=== PATIENT | female | born 1960 | race Caucasian/White ===

== ENCOUNTER 2016-04-11 08:30 | Emergency (ER) | payer OTHER ==
--- NOTE | 2016-04-11 09:13 | EDPHY ---
H & P Stated Complaint: l hip pain/snowshoing last week Time Seen by Provider: 04/11/16 08:47 - Personal History Current Tetanus/Diphtheria Vaccine: Yes - Medical/Surgical History Hx Asthma: No Hx Chronic Respiratory Disease: No Hx Diabetes: No Hx Cardiac Disease: No Hx Renal Disease: No Hx Cirrhosis: No Hx Alcoholism: No Hx HIV/AIDS: No Hx Splenectomy or Spleen Trauma: No Other PMH: breast cancer - Social History Smoking Status: Never smoked Constitutional: Initial Vital Signs Temperature (C) 36.4 C 04/11/16 08:36 Heart Rate 68 04/11/16 08:36 Respiratory Rate 16 04/11/16 08:36 Blood Pressure 136/71 H 04/11/16 08:36 O2 Sat (%) 93 04/11/16 08:36 O2 Delivery Mode Room Air Allergies/Adverse Reactions: No Known Allergies Allergy (Unverified 04/11/16 08:33) Home Medications: Medication Instructions Recorded Anastrozole 04/11/16 LYRICA 04/11/16 Woodward 5/325 (*) 04/11/16 VENLAFAXINE HCL 04/11/16 Vitamins And Supplements 04/11/16 Medical Decision Making ED Course/Re-evaluation: CHIEF COMPLAINT: Left hip pain HISTORY OF PRESENT ILLNESS: 56-year-old female who approximately 1 year ago was diagnosed with breast cancer. She has just recently finished her radiation treatment is in the process of reconstructive breast surgery. Intermittently over the last year she has had some mild pain in the anterior left hip and groin area. Over the last few days after snow shoveling event she has had excruciating pain in the outside of the left hip with some partial radiation down the lateral left thigh. She can barely bear weight. It woke grade 3 in the morning she could barely get down stairs. She took a [place]ward at 6 this morning and was able sit in a chair for a while but still did not help much she came here for further evaluation. She denies any fevers or chills. She denies any traumatic injury or specific event REVIEW OF SYSTEMS: A 10 point review of systems was performed and is negative with the exception of the elements mentioned in the history of present illness. PHYSICAL EXAM: HR, BP, O2 Sat, RR. Temp noted General Appearance: Alert, well hydrated, appropriate, and non-toxic appearing. Head: Atraumatic without scalp tenderness or obvious injury Eyes: Pupils equal, round, reactive to light and accommodation, EOMI, no trauma , no injection. Ears: Clear bilaterally, no perforation, normal landmarks Nose: Atraumatic, no rhinorrhea, clear. Throat: There is no erythema or exudates, no lesions, normal tonsils, mucus membranes moist. Neck: Supple, 2+ carotid upstroke, nontender, no lymphadenopathy. Respiratory: No retractions, no distress, no wheezes, and no accessory muscle use. Lungs are clear to auscultation bilaterally. Cardiovascular: Regular rate and rhythm, no murmurs, rubs, or gallops. Bilateral carotid, radial, dorsalis pedis, and posterior tibial pulses intact. Good capillary refill all extremities. Gastrointestinal: Abdomen is soft, nontender, non-distended, no masses, no rebound, no guarding, no peritoneal signs. Musculoskeletal: Significant pain in the left hip over the greater trochanter and iliotibial band. Otherwise, Normal active ROM of all extremities, atraumatic. Neurological: Alert, appropriate, and interactive. The patient has normal DTRs and non-focal cranial nerves, motor, sensory, and cerebellar exam. Skin: No rashes, good turgor, no nodules on palpation. Past medical history: Breast cancer Past surgical history: Surgery related to breast cancer bilateral mastectomy and reconstruction Family history: Noncontributory Social history: , does not abuse tobacco drugs or alcohol, accompanied here by her DIAGNOSTICS/PROCEDURES/CRITICAL CARE TIME: Study: MRI of the: left hip Indication: severe hip pain with a history of breast cancer Results: MRI scan of the left hip was obtained. The results of the study are anterior labral tear but the most likely cause of her acute symptoms are a gluteus minimus tear with acute edema. The study was read by the radiologist, Dr. Anibal Laws . I viewed the images myself on the PACS system. DIFFERENTIAL DIAGNOSIS: Includes but is not limited to trochanteric bursitis, iliotibial band syndrome, occult fracture, bony metastases, labrum tear, arthritis. MEDICAL DECISION MAKING: This patient is comfortable as long as she does not move her hip around her bear weight. Due to her history of breast cancer in the fact that this is potentially a soft tissue injury I am doing an MRI to further elucidate the situation. I will give this patient pain medicine and refer her out Orthopedic surgery. She most likely had an acute event when she was snow shoveling the other day. - Data Points Medications Given: Discontinued Medications Hydromorphone HCl (Dilaudid) 1 mg IVP EDNOW ONE Stop: 04/11/16 09:30 Last Admin: 04/11/16 09:42 Dose: 1 mg Departure - Departure Disposition: Home, Routine, Self-Care Clinical Impression: Tear of left gluteus minimus tendon Qualifiers: Encounter type: initial encounter Qualifier Code: (S76.012A) Strain of muscle, fascia and tendon of left hip, initial encounter Condition: Good Instructions: Musculoskeletal Pain (ED) Referrals: Yary Harry PAC [Primary Care Provider] - As per Instructions Keri Méndez MD [Medical Doctor] - As per Instructions
[2016-04-11] MEDS ORDERED: HYDROmorphONE/DILAUDID 1 MG/ML SYR IVP ONE (09:29)
[2016-04-11 09:50] VITALS: RESP 18
[2016-04-11] MEDS ORDERED: GADOBUTROL 10 ML VIAL IVP ONE (09:57)
--- NOTE | 2016-04-11 11:49 | MR ---
MRI Pelvis and Left Hip Without and With Contrast History: Left hip pain. History of breast cancer. Technique: MRI was performed of the left hip and pelvis using a 3 Renata MRI system. Large field-of-vi ew coronal and axial imaging was obtained of the pelvis. Small pydxn-fc-xlav oblique axial, oblique c oronal, and sagittal imaging was obtained of the left hip. Images were obtained pre- and postintraven ous contrast, 8 mL Gadavist. Findings: No significant bone marrow abnormality is visualized. No evidence for osseous metastatic di sease. There is mild bone marrow edema with enhancement at the inferior left sacroiliac joint with mi ld adjacent sclerosis and spurring. No evidence for avascular necrosis of the femoral head. No eviden ce for stress fracture of the femoral neck. Mild degenerative change is seen in the symphysis pubis. Femoral head neck junction of the left hip is within normal limits without evidence of an osseous bum p. There is lateral acetabular overcoverage with the lateral center edge angle measuring 46 degrees. There is a partial nondisplaced tear in the anterior superior labrum. No evidence for hip joint effu laurita. No capsule abnormality is visualized. Ligamentum teres is intact. There is edema and attenuation of fibers of the gluteus minimus tendon insertion at the greater troch anter. There is adjacent significant edema and enhancement. There is a couple foci of very low signal intensity indicating calcification, with underlying calcific tendinitis. Minimal abnormal signal int ensity is seen at the gluteus medias tendon insertion. On large ynbzt-ma-dlii images, there is mild e bijan at the gluteus minimus tendon insertion on the right without attenuation. The large cujvo-jv-jsg w images also show evidence of the lateral acetabular overcoverage in the right hip and possible nond isplaced anterior superior labral tear. Impression: 1. Tendinitis and partial tear of the gluteus minimus tendon insertion of the left hip. There is also significant edema and enhancement with underlying calcific tendinitis. 2. Partial nondisplaced tear anterior superior labrum of left hip. Underlying femoral acetabular impi ngement, pincer type. There also appears to be similar findings in the right hip in the large field-o f-view images. 3. Mild tendinopathy gluteus minimus tendon insertion at the right greater trochanter without attenua tion. 4. Mild degenerative change or sacroiliitis of left sacroiliac joint. Results called to Dr. Anderson Logan.
[2016-04-11 12:09] VITALS: BP 136/64; PULSE 82; TEMP 98.2; O2SAT 95
== END 2016-04-11 12:09 | disposition home or self-care (01) ==
DX: S76.012A Strain of muscle, fascia and tendon of left hip, initial encounter (principal); C50.919 Malignant neoplasm of unspecified site of unspecified female breast; X58.XXXA Exposure to other specified factors, initial encounter; Y99.8 Other external cause status; Y93.H1 Activity, digging, shoveling and raking
CPT/HCPCS: 96374; A9585; J1170

== ENCOUNTER 2016-09-25 14:17 | Emergency (ER) | payer OTHER ==
--- NOTE | 2016-09-25 14:37 | EDPHY ---
H & P HPI/ROS: HPI CHIEF COMPLAINT: Diarrhea x9 days HISTORY OF PRESENT ILLNESS: This patient very pleasant 56-year-old female significant past medical history for breast cancer status post chemo, bilateral mastectomy, axonal theresa dissection, in remission, presents emergency room with 9 days of watery diarrhea. No blood. No fever. Intermittent abdominal cramps. She states that she followed the strict brat diet. This all started after she ate bag salad. She states she bags out once immediately got sick and then ate a salad again of the same back and then had further diarrhea. She denies fever, bloody stools. She states she has been following brat diet which has been helping however she had coffee today and potato. This caused her to have watery diarrhea down. No vomiting. She decided come to the emergency room as she had 9 days of watery diarrhea. She denies abdominal pain, fever at this time. Past Medical History: Breast cancer Past Surgical History: Bilateral mastectomy, breast reconstruction bilaterally , axonal theresa dissection Social History: Denies daily use of drugs alcohol tobacco products, lives locally. Family History: Noncontributory ROS REVIEW OF SYSTEMS: A comprehensive 10 point review of systems is otherwise negative aside from elements mentioned in the history of present illness. Exam Constitutional appears well nontoxic triage nursing summary reviewed, vital signs reviewed, awake/alert. Eyes normal conjunctivae and sclera, EOMI, PERRLA. HENT normal inspection, atraumatic, moist mucus membranes, no epistaxis, neck supple/ no meningismus, no raccoon eyes. Respiratory clear to auscultation bilaterally, normal breath sounds, no respiratory distress, no wheezing. Cardiovascular rate normal, regular rhythm, no murmur, no edema, distal pulses normal. Gastrointestinal nonfocal nontender abdomen soft, non-tender, no rebound, no guarding, normal bowel sounds, no distension, no pulsatile mass. Genitourinary no CVA tenderness. Musculoskeletal no midline vertebral tenderness, full range of motion, no calf swelling, no tenderness of extremities, no meningismus, good pulses, neurovascularly intact. Skin pink, warm, & dry, no rash, skin atraumatic. Neurologic awake, alert and oriented x 3, AAOx3, moves all 4 extremities equally, motor intact, sensory intact, CN II-XII intact, normal cerebellar, normal vision, normal speech. Psychiatric normal mood/affect. Heme/Lymph/Immune no lymphadenopathy. Differential Diagnosis: Includes but is not limited to in a particular order, acute diarrheal illness, E coli illness, Shigella, Salmonella, ETEC, Campylobacter Medical Decision Making: Plan for this patient IV establishment, IV fluid bolus , check basic abdominal labs, GI stool study if possible. Re-evaluation: 165: Patient unable to provide a stool sample here. Vital signs are stable. No fever. Blood work unremarkable. Will provide her stool kit to [facility] to [facility] if she can provide a diarrheal stool sample. [place] diet. Stay well- hydrated. Advance diet slowly. No cough. She understands. Source: Patient - Medical/Surgical History Hx Asthma: No Hx Chronic Respiratory Disease: No Hx Diabetes: No Hx Cardiac Disease: No Hx Renal Disease: No Hx Cirrhosis: No Hx Alcoholism: No Hx HIV/AIDS: No Hx Splenectomy or Spleen Trauma: No Other PMH: breast cancer - Social History Smoking Status: Never smoked Constitutional: Initial Vital Signs Temperature (C) 36.6 C 09/25/16 14:37 Heart Rate 80 09/25/16 14:37 Respiratory Rate 18 09/25/16 14:37 Blood Pressure 157/64 H 09/25/16 14:37 O2 Sat (%) 94 09/25/16 14:37 O2 Delivery Mode Room Air Allergies/Adverse Reactions: No Known Allergies Allergy (Unverified 04/11/16 08:33) Home Medications: Medication Instructions Recorded VENLAFAXINE HCL 04/11/16 Vitamins And Supplements 04/11/16 Medical Decision Making - Data Points Laboratory Results: Laboratory Results 09/25/16 15:00 09/25/16 15:00 09/25/16 09/25/16 15:00 15:00 WBC 6.45 10^3/uL 10^3/uL (3.80-9.50) RBC 4.85 10^6/uL 10^6/uL (4.18-5.33) Hgb 14.4 g/dL g/dL (12.6-16.3) Hct 42.2 % % (38.0-47.0) MCV 87.0 fL fL (81.5-99.8) MCH 29.7 pg pg (27.9-34.1) MCHC 34.1 g/dL g/dL (32.4-36.7) RDW 12.9 % % (11.5-15.2) Plt Count 178 10^3/uL 10^3/uL (150-400) MPV 10.3 fL fL (8.7-11.7) Neut % (Auto) 67.0 % % (39.3-74.2) Lymph % (Auto) 16.4 % % (15.0-45.0) [place] % (Auto) 5.6 % % (4.5-13.0) Eos % (Auto) 10.5 % H % (0.6-7.6) Baso % (Auto) 0.2 % L % (0.3-1.7) Nucleat RBC Rel Count 0.0 % % (0.0-0.2) Absolute Neuts (auto) 4.32 10^3/uL 10^3/uL (1.70-6.50) Absolute Lymphs (auto) 1.06 10^3/uL 10^3/uL (1.00-3.00) Absolute Monos (auto) 0.36 10^3/uL 10^3/uL (0.30-0.80) Absolute Eos (auto) 0.68 10^3/uL H 10^3/uL (0.03-0.40) Absolute Basos (auto) 0.01 10^3/uL L 10^3/uL (0.02-0.10) Absolute Nucleated RBC 0.00 10^3/uL 10^3/uL (0-0.01) Immature Gran % 0.3 % % (0.0-1.1) Immature Gran # 0.02 10^3/uL 10^3/uL (0.00-0.10) Sodium 141 mEq/L mEq/L (134-144) Potassium 4.4 mEq/L mEq/L (3.5-5.2) Chloride 104 mEq/L mEq/L (97-110) Carbon Dioxide 24 mEq/l mEq/l (22-31) Anion Gap 13 mEq/L mEq/L (8-16) BUN 14 mg/dL mg/dL (7-23) Creatinine 0.8 mg/dL mg/dL (0.6-1.0) Estimated GFR > 60 Glucose 89 mg/dL mg/dL (70-100) Calcium 9.7 mg/dL mg/dL (8.5-10.4) Total Bilirubin 0.9 mg/dL mg/dL (0.1-1.4) Conjugated Bilirubin 0.3 mg/dL mg/dL (0.0-0.5) Unconjugated Bilirubin 0.6 mg/dL mg/dL (0.0-1.1) AST 18 IU/L IU/L (14-46) ALT 31 IU/L IU/L (9-52) Alkaline Phosphatase 63 IU/L IU/L (38-126) Total Protein 6.3 g/dL g/dL (6.3-8.2) Albumin 4.2 g/dL g/dL (3.5-5.0) Medications Given: Discontinued Medications Sodium Chloride (Ns) 1,000 mls @ 0 mls/hr IV EDNOW ONE; Wide Open PRN Reason: Protocol Stop: 09/25/16 14:45 Last Admin: 09/25/16 14:55 Dose: 1,000 mls Departure - Departure Disposition: Home, Routine, Self-Care Clinical Impression: Diarrhea Qualifiers: Diarrhea type: unspecified type Qualified Code(s): R19.7 - Diarrhea, unspecified Condition: Good Instructions: Acute Diarrhea (ED) Additional Instructions: 1. Return emergency room if he develops worsening bloody diarrhea, abdominal pain, fever. 2. Please provide a stool sample if you can't to [facility]. 3. Follow up with Gastroenterology. Referrals: Yary Harry PAC [Primary Care Provider] - As per Instructions
[2016-09-25 14:40] VITALS: RESP 18; TEMP 98
[2016-09-25] MEDS ORDERED: NS 1,000 ML IV ONE (14:44)
[2016-09-25 15:03] LABS: % IMMATURE GRANULYOCYTES 0.3 % (0.0-1.1); ABSOLUTE IMMATURE GRANULOCYTES 0.02 10^3/uL (0.00-0.10); ADD DIFF? NO; ADD MORPH? NO; ADD SCAN? NO; ATYPICAL LYMPHOCYTE FLAG 0 (0-99); FRAGMENT RBC FLAG 0 (0-99); HEMATOCRIT 42.2 % (38.0-47.0); HEMOGLOBIN 14.4 g/dL (12.6-16.3); LEFT SHIFT FLG 0 (0-99); LIPEMIA HEMOLYSIS FLAG 90 (0-99); MEAN CELL HEMOGLOBIN 29.7 pg (27.9-34.1); MEAN CELL HEMOGLOBIN CONCENTR. 34.1 g/dL (32.4-36.7); MEAN PLATELET VOLUME 10.3 fL (8.7-11.7); PLATELET CLUMPS FLAG 0 (0-99); PLATELET COUNT 178 10^3/uL (150-400); RED BLOOD CELL COUNT 4.85 10^6/uL (4.18-5.33); RED CELL DISTRIBUTION WIDTH 12.9 % (11.5-15.2)
[2016-09-25 15:18] LABS: ALANINE AMINOTRANSFERASE 31 IU/L (9-52); ALBUMIN 4.2 g/dL (3.5-5.0); ALKALINE PHOSPHATASE 63 IU/L (38-126); ANION GAP 13 mEq/L (8-16); ASPARTATE AMINOTRANSFERASE 18 IU/L (14-46); BILIRUBIN,TOTAL 0.9 mg/dL (0.1-1.4); BILIRUBIN-CONJUGATED 0.3 mg/dL (0.0-0.5); BILIRUBIN-UNCONJUGATED 0.6 mg/dL (0.0-1.1); CALCIUM 9.7 mg/dL (8.5-10.4); CARBON DIOXIDE 24 mEq/l (22-31); CHLORIDE 104 mEq/L (97-110); CREATININE 0.8 mg/dL (0.6-1.0); GLOMERULAR FILTRATION RATE > 60; GLUCOSE 89 mg/dL (70-100); POTASSIUM 4.4 mEq/L (3.5-5.2); SODIUM 141 mEq/L (134-144); TOTAL PROTEIN 6.3 g/dL (6.3-8.2)
[2016-09-25 16:30] VITALS: BP 124/66; PULSE 88; O2SAT 97
== END 2016-09-25 17:11 | disposition home or self-care (01) ==
LOC: CED 14:17
DX: R19.7 Diarrhea, unspecified (principal); E86.9 Volume depletion, unspecified; Z85.3 Personal history of malignant neoplasm of breast
CPT/HCPCS: 80048-PO; 80076-PO; 85025-PO